=== PATIENT | female | born 1960 | race Caucasian/White ===

== ENCOUNTER 2018-10-03 17:38 | Emergency (ER) | payer MEDICAID ==
[~2018-10-03] VITALS: Ht 165.1 cm; Wt 90.7 kg
[2018-10-03 17:45] VITALS: Ht 165.1 cm; Wt 90.7 kg
[2018-10-03 20:34] VITALS: BP 102/67
== END 2018-10-03 20:34 | disposition home or self-care (01) ==
LOC: ED 17:38
DX: K57.30 Diverticulosis of large intestine without perforation or abscess without bleeding (principal); G89.29 Other chronic pain; E07.9 Disorder of thyroid, unspecified
CPT/HCPCS: 36415; J1885